=== PATIENT | male | born 1985 | race Caucasian/White ===

== ENCOUNTER 2020-03-06 16:01 | Emergency (ER) | payer MEDICAID ==
[2020-03-06] MEDS ORDERED: Bacitracin Oint 1 GM U/D Packet TOP ONE (16:49)
--- NOTE | 2020-03-06 16:55 | EDM.PDOC ---
ED HPI GENERAL MEDICAL PROBLEM - General Chief Complaint: Laceration Stated Complaint: BLEEDING/LEFT KNEE Time Seen by Provider: 03/06/20 16:50 Source of Information: Reports: Patient History Limitations: Reports: No Limitations - History of Present Illness INITIAL COMMENTS - FREE TEXT/NARRATIVE: Jacky is a 34 year old that presents to the ED with a bleeding puncture wound on the lateral side of the left knee. In high school, he was hit in the knee with a metal baseball cleat which resulted in a scar. Today he was working on a house project and a board hit him right over that scar. There appears to be a varicosity which started bleeding. Pt was unable to stop the bleed with pressure so he presented to the ED with a dressing in place. Tetanus is update 09/2019. Onset: Today Location: Reports: Lower Extremity, Left (lateral knee) Improves with: Reports: None Worsens with: Reports: None Associated Symptoms: Reports: No Other Symptoms Treatments CREATIVE ENGAGEMENT DIRECTOR: Reports: Dressing(s) - Related Data Allergies Allergy/AdvReac Type Severity Reaction Status Date / Time Penicillins Allergy Cannot Verified 03/06/20 16:29 Remember Home Meds: Home Meds NK [No Known Home Meds] 03/06/20 [History] Past Medical History Musculoskeletal History: Reports: Fracture Endocrine/Metabolic History: Reports: Obesity/BMI 30+ Social & Family History - Tobacco Use Smoking Status *Q: Never Smoker - Caffeine Use Caffeine Use: Reports: None - Recreational Drug Use Recreational Drug Use: No ED ROS GENERAL - Review of Systems Review Of Systems: Comprehensive ROS is negative, except as noted in HPI. ED EXAM, SKIN/RASH Exam: See Below Exam Limited By: No Limitations General Appearance: Alert, No Apparent Distress Cardiovascular: Normal Peripheral Pulses Extremities: Normal Inspection, Normal Range of Motion, Normal Capillary Refill Neurological: Alert, Oriented Skin: Warm, Dry, Normal Color, Wound/Incision (small (2mm) puncture wound to a varicose vein to left lateral knee-CMS intact. ). No: Ecchymosis, Erythema, Increased Warmth Location, Skin: Lower Extremity, Left ED SKIN PROCEDURES - Laceration/Wound Repair Left Lateral Knee Appearance: Subcutaneous, Clean Distal NVT: Neuro & Vascular Intact Anesthetic Type: Local Local Anesthesia - Lidocaine (Xylocaine): 1% Plain Local Anesthetic Volume: 2cc Skin Prep: Chlorhexidine (Hibiciens), Isopropyl Alcohol (Alcohol) Exploration/Debridement/Repair: No Foreign Material Found Closed with: Sutures Lac/Wound length In cm: 0 (2-2.5mm) Suture Size: 5-0 # of Sutures: 1 Suture Type: Prolene Suture Size: 5-0 # of Sutures: 1 Repaired with: Chromic Progress/Comments: sutures placed per Dr Reece. Course - Vital Signs Last Recorded V/S: Last Vital Signs Temp 97.1 F 03/06/20 16:28 Pulse 117 H 03/06/20 16:28 Resp 20 03/06/20 16:28 BP 186/85 H 03/06/20 16:28 Pulse Ox 96 03/06/20 16:28 - Orders/Labs/Meds Meds: Medications Discontinued Medications Generic Name Dose Route Start Last Admin Trade Name Samantha PRN Reason Stop Dose Admin Bacitracin 1 dose 03/06/20 16:49 03/06/20 17:01 Bacitracin Oint 1 Gm TOP 03/06/20 16:50 1 dose ONETIME ONE Administration Lidocaine HCl 5 ml 03/06/20 16:49 03/06/20 17:01 Xylocaine-Mpf 1% INJECT 03/06/20 16:50 5 ml ONETIME ONE Administration Departure - Departure Time of Disposition: 17:35 Disposition: Home, Self-Care 01 Clinical Impression: Puncture wound of knee, left, complicated - Discharge Information *PRESCRIPTION DRUG MONITORING PROGRAM REVIEWED*: No *COPY OF PRESCRIPTION DRUG MONITORING REPORT IN PATIENT GISSELL: No Instructions: Puncture Wound, [id number] Referrals: Rosalinda Brown MD [Primary Care Provider] - Forms: ED Department Discharge Additional Instructions: Leave pressure dressing on for 24 hours. After that keep clean and dry. Wash daily with soap and water. Watch for signs of infection- (redness, purulent drainage, fever, red streaking from wound, and/or swelling). Your tetanus shot is up to date. Suture removal in 8 days. You can come back to ER for suture removal. If it should start bleeding, apply direct pressure to wound. Call or return to ED with any concerns. Sepsis Event Note (ED) - Evaluation Sepsis Screening Result: No Definite Risk - Focused Exam Vital Signs: Vital Signs Temp Pulse Resp BP Pulse Ox 03/06/20 16:28 97.1 F 117 H 20 186/85 H 96 03/06/20 16:16 97.1 F 117 H 20 186/85 H 96
== END 2020-03-06 17:52 | disposition home or self-care (01) ==
LOC: JP.ED 16:01
DX: S81.032A Puncture wound without foreign body, left knee, initial encounter (principal); E66.9 Obesity, unspecified; Z68.43 Body mass index [BMI] 50.0-59.9, adult; Z88.0 Allergy status to penicillin; W21.03XA Struck by baseball, initial encounter; Y93.64 Activity, baseball; Y92.213 High school as the place of occurrence of the external cause
CPT/HCPCS: 12001; 99283; J2001